=== PATIENT | male | born 1990 | race Caucasian/White ===

== ENCOUNTER 2024-12-24 11:41 | Emergency (ER) | payer OTHER, SELFPAY ==
[2024-12-24 11:46] VITALS: BP 176/95; PULSE 98; RESP 17; TEMP 36.9; O2SAT 99; BMI 27.5
--- NOTE | 2024-12-24 12:35 | ED_ITS ---
HPI - Back Pain/Injury <Heidi Aguayo PA-C - Last Filed: 12/24/24 13:51> General Chief Complaint: Back Pain/Injury Stated Complaint: low back pain t-2 Time Seen by Provider: 12/24/24 12:11 History of Present Illness HPI Narrative: Mr. 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 Patient states while working he was jogging and then picked something heavy up when he developed pain acutely in the low back. Reports that the low back felt sore however over the last 2 days he occasionally gets sharp pain in the left buttocks as well. He had similar pain in the past while on deployment that resolved in about 4 days. He is concerned for possible herniated disc or other injury. [place] [employer] physician however they had no openings. He denies any numbness tingling, weakness in the lower legs. He does note that when he squats down he is difficulty standing back up and needs to use his hands to support himself on his thighs. Denies chest pain, shortness of breath, fevers, chills, bowel or bladder incontinence, hematuria, dysuria, flank pain. No medications prior to arrival. He is wearing a supportive wrap around his low back which has been helping. Related Data Previous Rx's Medication Instructions Recorded methocarbamol 500 mg tablet 500 mg PO BEDTIME #10 tabs 12/24/24 naproxen 500 mg tablet 500 mg PO BID PRN pain #20 tabs 12/24/24 Allergies Allergy/AdvReac Type Severity Reaction Status Date / Time No Known Drug Allergies Allergy Verified 12/24/24 11:54 Review of Systems <Heidi Aguayo PA-C - Last Filed: 12/24/24 13:51> Review of Systems ROS Unobtainable: All systems reviewed & are unremarkable except as noted in HPI and below Patient History <Heidi Aguayo PA-C - Last Filed: 12/24/24 13:51> Social History Smoking Status: Former smoker Smoking Status: Former smoker tobacco type: cigarettes Exam <Heidi Aguayo PA-C - Last Filed: 12/24/24 13:51> Narrative Exam Narrative: GENERAL: 34 year old patient appears stated age. Well-developed patient, in no acute distress. HEAD: Atraumatic. Normocephalic. NECK: Trachea midline. Cervical ROM intact. CARDIOVASCULAR: Regular rate and rhythm. RESPIRATORY: ?Nonlabored respirations. ?Speaking in clear, full sentences. EXTREMITIES: No edema or joint tenderness. 5/5 bilateral strength knee flexion- extension, hip flexion-extension. BACK: Nontender without deformity or crepitance. No flank tenderness. Subjective pain in mid lumbar region and left SI joint region. NEURO: AOx3. ?Clear speech. ?Moves all 4 extremities appropriately. Sensation intact to light touch in bilateral lower extremities. SKIN: No rash or erythema of visible areas Initial Vital Signs Initial Vital Signs: Vital Signs Temperature 98.5 F 12/24/24 11:46 Pulse Rate 98 H 12/24/24 11:46 Respiratory Rate 17 12/24/24 11:46 Blood Pressure 176/95 H 12/24/24 11:46 Pulse Oximetry 99 12/24/24 11:46 Oxygen Delivery Method Room Air 12/24/24 11:46 <Hailey Rowland DO - Last Filed: 12/29/24 23:58> Initial Vital Signs Initial Vital Signs: Vital Signs Temperature 98.5 F 12/24/24 11:46 Pulse Rate 98 H 12/24/24 11:46 Respiratory Rate 17 12/24/24 11:46 Blood Pressure 176/95 H 12/24/24 11:46 Pulse Oximetry 99 12/24/24 11:46 Oxygen Delivery Method Room Air 12/24/24 11:46 Course <Heidi Aguayo PA-C - Last Filed: 12/24/24 13:51> Orders Ordered: Discontinued Medications Ketorolac Tromethamine (Ketorolac 30 Mg/Ml Vial) 30 mg IM NOW ONE Stop: 12/24/24 12:56 Last Admin: 12/24/24 13:12 Dose: 30 mg Documented By: SARAH Vital Signs Vital signs: Vital Signs - 8 hr 12/24/24 11:46 Temperature 98.5 F Pulse Rate 98 H Respiratory Rate 17 Blood Pressure 176/95 H Pulse Oximetry 99 Oxygen Delivery Method Room Air <Hailey Rowland DO - Last Filed: 12/29/24 23:58> Orders Ordered: Discontinued Medications Ketorolac Tromethamine (Ketorolac 30 Mg/Ml Vial) 30 mg IM NOW ONE Stop: 12/24/24 12:56 Last Admin: 12/24/24 13:12 Dose: 30 mg Documented By: SARAH Vital Signs Vital signs: Vital Signs - 8 hr 12/24/24 11:46 Temperature 98.5 F Pulse Rate 98 H Respiratory Rate 17 Blood Pressure 176/95 H Pulse Oximetry 99 Oxygen Delivery Method Room Air MDM - Back Pain/Injury <Heidi Aguayo PA-C - Last Filed: 12/24/24 13:51> MDM Narrative Medical decision making narrative: 34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 Differential diagnosis includes but is not limited to sacroiliitis, lumbar muscle strain, muscle spasm, herniated disc, spinal stenosis, lumbar degenerative disc disease, etc. On exam the patient is in no acute distress, nontoxic appearing. 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 Ambulates independently without difficulty. Lower extremities are neurovascularly intact, strength intact. No bowel or bladder incontinence, no lower extremity weakness, no fevers, no physical exam or history elements concern for acute cauda equina syndrome at this time. History and physical exam most consistent with paralumbar muscle strain versus sacroiliitis vs underlying DDD. Discussed with the patient that for diagnosis of herniated disc he would need advanced imaging such as MRI, recommend he follow up with orthopedic spine surgeon for further evaluation as he has experienced pain in the past and disc buldge is very possible. No indication for emergent imaging at this time. No direct trauma to the back. We will treat with dose of IM ketorolac in the ED and send patient home with prescriptions for naproxen, Robaxin. I also would like for him to rest, avoid heavy lifting, follow up with [employer] physician for further evaluation and possible referral for Orthopedics or imaging. Discussed signs and symptoms for patient to return to the ED for. Patient verbalized understanding of all information is agreeable to the plan. He is stable for discharge home. Did discuss patient's elevated blood pressure with him, he reports a history of white coat hypertension and has normal BP readings at home, encouraged him to continue taking readings at home and follow up PCP, take daily lisinopril as prescribed Discharge Plan Departure Patient Disposition: Home Clinical Impression: Strain of lumbar region Qualifiers: Encounter type: initial encounter Qualified Code(s): S39.012A - Strain of muscle, fascia and tendon of lower back, initial encounter Instructions: DI for Back Strain or Sprain Activity Restrictions/Additional Instructions: Dear Mr. Ramirez, Today you were evaluated for low back pain and left glute pain. Your symptoms are most consistent with a strained lumbar muscle and sacroiliitis. It is very important to rest, avoid prolonged bending or heavy lifting, use anti- inflammatories as prescribed, and follow up with your primary care doctor. Please use warm therapy on the low back and gentle stretching as well. You have been prescribed a muscle relaxer. This can make you drowsy so only use this at night or when you are willl not be working or driving a car. Return to the emergency department immediately if you develop any bowel or bladder dysfunction, fevers, numbness in the groin or any other concerns. We recommend that you follow up with your primary care doctor and possibly an orthopedic spine doctor for further evaluation and management of your low back pain. Please follow up with your primary care doctor within the next 2-3 days for ER follow-up. (If you do not have a PCP you can call [phone]. ?to schedule an appointment with an [facility] Primary Care Provider) IF YOU DEVELOP ANY NEW OR WORSENING SYMPTOMS, RETURN TO THE ER! Please read the attached instructions, they highlight more specific treatments and interventions for you at home. Thank you for letting me participate in your care, Heidi Aguayo PA-C Prescriptions: New naproxen 500 mg tablet 500 mg PO BID PRN (Reason: pain) Qty: 20 0RF methocarbamol 500 mg tablet 500 mg PO BEDTIME Qty: 10 0RF Stand Alone Forms: Patient Portal/API/Survey, Work Release Note ED Sign-out <Hailey Rowland DO - Last Filed: 12/29/24 23:58> Cosign ED Attending Hong Attestation: I was available for consultation.
[2024-12-24] MEDS: KETOROLAC 30 MG/ML VIAL IM (13:12)
[2024-12-24 13:53] VITALS: BP 150/93; PULSE 91; RESP 16; O2SAT 98
== END 2024-12-24 13:53 | disposition home or self-care (01) ==
PROVIDERS: Emergency Provider Physician Assistant
DX: S39.012A Strain of muscle, fascia and tendon of lower back, initial encounter (principal); I10 Essential (primary) hypertension; X50.0XXA Overexertion from strenuous movement or load, initial encounter; Z87.891 Personal history of nicotine dependence
CPT/HCPCS: 96372; 99283; 99284; J1885